=== PATIENT | male | born 1975 | race Caucasian/White ===

== ENCOUNTER 2017-05-04 12:13 | Observation (INO) | payer SELFPAY ==
--- NOTE | 2017-05-04 13:17 | ED ---
General Adult HPI - General Source: RN notes reviewed <Andry Dow - Last Filed: 05/04/17 14:47> <Willian Lane - Last Filed: 05/04/17 15:11> - General Stated complaint: Chest pain Time Seen by Provider: 05/04/17 12:43 - History of Present Illness Initial comments: Patient 41-year-old female with no significant past medical history, who presents emergency room today with a chief complaint of chest pain off-and-on over the last week. He does admit that he's been experiencing a somewhat constant discomfort. He states that sometimes he experiences a chest pain to the anterior chest wall that last anywhere from a few minutes to maybe 20 minutes at a time. He states it occurs every few hours. He denies anything that seems to make it better or worse. He states never had this pain in the past. Patient states that he is also experiencing some pain to the left shoulder and down the arm. Patient denies any other complaints or symptoms. Patient denies any recent fever, chills, shortness of breath, back pain, abdominal pain, nausea or vomiting, numbness or tingling, dysuria or hematuria, constipation or diarrhea, headaches or visual changes, or any other complaints. (Andry Dow) - Related Data Home Medications Medication Instructions Recorded Confirmed No Known Home Medications [No 05/04/17 05/04/17 Known Home Medications] Allergies Allergy/AdvReac Type Severity Reaction Status Date / Time Penicillins Allergy Rash/Hives Verified 05/04/17 13:36 Review of Systems ROS Other: All systems not noted in ROS Statement are negative. <Andry Dow - Last Filed: 05/04/17 14:47> ROS Other: All systems not noted in ROS Statement are negative. <Willian Lane - Last Filed: 05/04/17 15:11> ROS Statement: Those systems with pertinent positive or pertinent negative responses have been documented in the HPI. Past Medical History Past Medical History: No Reported History History of Any Multi-Drug Resistant Organisms: None Reported Past Surgical History: No Surgical Hx Reported Past Psychological History: No Psychological Hx Reported Smoking Status: Current every day smoker Past Alcohol Use History: Rare Past Drug Use History: None Reported <Andry Dow - Last Filed: 05/04/17 14:47> General Exam <Andry Dow - Last Filed: 05/04/17 14:47> <Willian Lane - Last Filed: 05/04/17 15:11> - General Exam Comments Initial Comments: General: The patient is awake and alert, in no distress, and does not appear acutely ill. Eye: Pupils are equal, round and reactive to light, extra-ocular movements are intact. No nystagmus. There is normal conjunctiva bilaterally. No signs of icterus. Ears, nose, mouth and throat: There are moist mucous membranes and no oral lesions. Neck: The neck is supple, there is no tenderness or JVD. Cardiovascular: There is a regular rate and rhythm. No murmur, rub or gallop is appreciated. Respiratory: Lungs are clear to auscultation, respirations are non-labored, breath sounds are equal. No wheezes, stridor, rales, or rhonchi. Gastrointestinal: Soft, non-distended, non-tender abdomen without masses or organomegaly noted. There is no rebound or guarding present. No CVA tenderness. Bowel sounds are unremarkable. Musculoskeletal: Normal ROM, no tenderness. Strength 5/5. Sensation intact. Pulses equal bilaterally 2+. Neurological: A&O x 3. CN II-XII intact, There are no obvious motor or sensory deficits. Coordination appears grossly intact. Speech is normal. Skin: Skin is warm and dry and no rashes or lesions are noted. Psychiatric: Cooperative, appropriate mood & affect, normal judgment. (Andry Dow) Medical Decision Making - Lab Data Result diagrams: 05/04/17 13:05 05/04/17 13:05 <Andry Dow - Last Filed: 05/04/17 14:47> - Lab Data Result diagrams: 05/04/17 13:05 05/04/17 13:05 <Willian Lane - Last Filed: 05/04/17 15:11> - Medical Decision Making Patient labs reviewed unremarkable. EKG shows normal sinus rhythm. Patient will be admitted to the hospital for serial enzymes. (Andry Dow) - Lab Data Lab Results 05/04/17 05/04/17 05/04/17 Range/Units 13:05 13:05 13:05 WBC 5.8 (3.8-10.6) k/uL RBC 5.23 (4.30-5.90) m/uL Hgb 16.5 (13.0-17.5) gm/dL Hct 47.8 (39.0-53.0) % MCV 91.5 (80.0-100.0) fL MCH 31.6 (25.0-35.0) pg MCHC 34.5 (31.0-37.0) g/dL RDW 12.8 (11.5-15.5) % Plt Count 271 (150-450) k/uL Neutrophils % 65 % Lymphocytes % 25 % Monocytes % 6 % Eosinophils % 2 % Basophils % 0 % Neutrophils # 3.8 (1.3-7.7) k/uL Lymphocytes # 1.5 (1.0-4.8) k/uL Monocytes # 0.4 (0-1.0) k/uL Eosinophils # 0.1 (0-0.7) k/uL Basophils # 0.0 (0-0.2) k/uL PT (9.0-12.0) sec INR (<1.2) APTT (22.0-30.0) sec D-Dimer (<0.60) mg/L FEU Sodium 139 (137-145) mmol/L Potassium 4.3 (3.5-5.1) mmol/L Chloride 106 (98-107) mmol/L Carbon Dioxide 20 L (22-30) mmol/L Anion Gap 13 mmol/L BUN 12 (9-20) mg/dL Creatinine 0.80 (0.66-1.25) mg/dL Est GFR (MDRD) Af Amer >60 (>60 ml/min/1.73 sqM) Est GFR (MDRD) Non-Af >60 (>60 ml/min/1.73 sqM) Glucose 107 H (74-99) mg/dL Calcium 9.5 (8.4-10.2) mg/dL Magnesium 1.7 (1.6-2.3) mg/dL Total Bilirubin 0.7 (0.2-1.3) mg/dL AST 23 (17-59) U/L ALT 35 (21-72) U/L Alkaline Phosphatase 87 (38-126) U/L Total Creatine Kinase 73 (55-170) U/L CK-MB (CK-2) 0.4 (0.0-2.4) ng/mL CK-MB (CK-2) Rel Index 0.5 Troponin I <0.012 (0.000-0.034) ng/mL Total Protein 8.0 (6.3-8.2) g/dL Albumin 4.8 (3.5-5.0) g/dL 05/04/17 Range/Units 13:05 WBC (3.8-10.6) k/uL RBC (4.30-5.90) m/uL Hgb (13.0-17.5) gm/dL Hct (39.0-53.0) % MCV (80.0-100.0) fL MCH (25.0-35.0) pg MCHC (31.0-37.0) g/dL RDW (11.5-15.5) % Plt Count (150-450) k/uL Neutrophils % % Lymphocytes % % Monocytes % % Eosinophils % % Basophils % % Neutrophils # (1.3-7.7) k/uL Lymphocytes # (1.0-4.8) k/uL Monocytes # (0-1.0) k/uL Eosinophils # (0-0.7) k/uL Basophils # (0-0.2) k/uL PT 11.4 (9.0-12.0) sec INR 1.1 (<1.2) APTT 23.1 (22.0-30.0) sec D-Dimer <0.17 (<0.60) mg/L FEU Sodium (137-145) mmol/L Potassium (3.5-5.1) mmol/L Chloride (98-107) mmol/L Carbon Dioxide (22-30) mmol/L Anion Gap mmol/L BUN (9-20) mg/dL Creatinine (0.66-1.25) mg/dL Est GFR (MDRD) Af Amer (>60 ml/min/1.73 sqM) Est GFR (MDRD) Non-Af (>60 ml/min/1.73 sqM) Glucose (74-99) mg/dL Calcium (8.4-10.2) mg/dL Magnesium (1.6-2.3) mg/dL Total Bilirubin (0.2-1.3) mg/dL AST (17-59) U/L ALT (21-72) U/L Alkaline Phosphatase (38-126) U/L Total Creatine Kinase (55-170) U/L CK-MB (CK-2) (0.0-2.4) ng/mL CK-MB (CK-2) Rel Index Troponin I (0.000-0.034) ng/mL Total Protein (6.3-8.2) g/dL Albumin (3.5-5.0) g/dL Disposition Time of Disposition: 14:48 <Andry Dow - Last Filed: 05/04/17 14:47> <Willian Lane - Last Filed: 05/04/17 15:11> Clinical Impression: Chest pain Disposition: ADMITTED IP TO THIS HOSP Instructions: Chest Pain (ED) Referrals: None,Stated [Primary Care Provider] - 1-2 days
[2017-05-04 13:23] LABS: WBC 5.8 k/uL (3.8-10.6)
[2017-05-04 13:24] LABS: HCT 47.8 % (39.0-53.0); HGB 16.5 gm/dL (13.0-17.5); RBC 5.23 m/uL (4.30-5.90)
[2017-05-04 13:25] LABS: CH 31.6; CHCM 34.7; HDW 2.31; Lymphocytes % (A) 25 %; MCH 31.6 pg (25.0-35.0); MCHC 34.5 g/dL (31.0-37.0); MCV 91.5 fL (80.0-100.0); Mean Platelet Volume 6.5; Monocytes % (A) 6 %; Neutrophils % (A) 65 %; RDW 12.8 % (11.5-15.5)
[2017-05-04 13:26] LABS: Basophils % (A) 0 %; Eosinophils # (A) 0.1 k/uL (0-0.7); Eosinophils % (A) 2 %; Luc % (Auto) 2; Lymphocytes # (A) 1.5 k/uL (1.0-4.8); Monocytes # (A) 0.4 k/uL (0-1.0); Neutrophils # (A) 3.8 k/uL (1.3-7.7)
[2017-05-04 13:32] LABS: ALT 35 U/L (21-72); AST 23 U/L (17-59); Alkaline Phosphatase 87 U/L (38-126); Anion Gap 13 mmol/L; Blood Urea Nitrogen 12 mg/dL (9-20); Calcium 9.5 mg/dL (8.4-10.2); Carbon Dioxide 20 mmol/L (22-30); Chloride 106 mmol/L (98-107); Glucose 107 mg/dL (74-99); Magnesium 1.7 mg/dL (1.6-2.3); Non-African American GFR(MDRD) >60 (>60 ml/min/1.73 sqM); Potassium 4.3 mmol/L (3.5-5.1); Sodium 139 mmol/L (137-145); Total Bilirubin 0.7 mg/dL (0.2-1.3)
[2017-05-04 13:42] LABS: Creatine Kinase 73 U/L (55-170)
[2017-05-04 13:47] LABS: INR 1.1 (<1.2); Partial Thromboplastin Time 23.1 sec (22.0-30.0); Prothrombin Time 11.4 sec (9.0-12.0)
[2017-05-04 13:53] LABS: Creatine Kinase MB 0.4 ng/mL (0.0-2.4); Troponin I <0.012 ng/mL (0.000-0.034)
--- NOTE | 2017-05-04 14:20 | XR ---
EXAMINATION TYPE: XR chest 2V DATE OF EXAM: 05/04/2017 CLINICAL HISTORY: Chest discomfort. TECHNIQUE: Frontal and lateral views of the chest are obtained. COMPARISON: None. FINDINGS: There is no focal air space opacity, pleural effusion, or pneumothorax seen. The cardiac silhouette size is within normal limits. The osseous structures are intact. IMPRESSION: No acute cardiopulmonary process.
[2017-05-04] MEDS ORDERED: NITROGLYCERIN SL TABS 0.4 MG TAB SUBLINGUAL PRN (14:49)
[2017-05-04] MEDS ORDERED: SODIUM CHLORIDE 0.9% 1,000 ML IV ONE (14:49)
[2017-05-04] MEDS ORDERED: oxyCODONE-APAP 5-325MG 1 EACH TAB PO PRN (15:38)
[2017-05-04] MEDS ORDERED: ACETAMINOPHEN TAB 325 MG TAB PO PRN (15:38)
--- NOTE | 2017-05-04 15:53 | P.HPIM ---
History of Present Illness H&P Date: 05/04/17 Chief Complaint: Chest pain The patient is a 41-year-old male with no previous past smoker history other than history of tobacco use which he quit 3 months ago Today she presents with the ER with chief complaint of mild achy chest discomfort intermittently for the last 7 days with some intermittent radiation None his left arm, some associated lightheadedness , he denies any exacerbating or relieving factors, he denies any shortness of breath nausea or vomiting. She reports that the pain can last anywhere from a few seconds to up to 20 minutes. He initially thought that he may have pulled a muscle Reported that the pain initially began a week ago when he was driving. Denies any history of anxiety or depression, but does report that he has been Increasingly anxious given that his uncle was recently diagnosed with cancer. Denies any related cardiac family history. In the ER he CBC CMP EKG was negative for any acute ischemia and negative set of troponins. Review of Systems All systems: negative Constitutional: Denies chills, Denies fever Eyes: denies blurred vision, denies pain Ears, nose, mouth and throat: Denies headache, Denies sore throat Cardiovascular: Denies chest pain, Denies shortness of breath Respiratory: Denies cough Gastrointestinal: Denies abdominal pain, Denies diarrhea, Denies nausea, Denies vomiting Musculoskeletal: Denies myalgias Integumentary: Denies pruritus, Denies rash Neurological: Denies numbness, Denies weakness Psychiatric: Denies anxiety, Denies depression Endocrine: Denies fatigue, Denies weight change Past Medical History Past Medical History: No Reported History History of Any Multi-Drug Resistant Organisms: None Reported Past Surgical History: No Surgical Hx Reported Past Psychological History: No Psychological Hx Reported Smoking Status: Current every day smoker Past Alcohol Use History: Rare Past Drug Use History: None Reported Medications and Allergies Home Medications Medication Instructions Recorded Confirmed Type No Known Home Medications [No 05/04/17 05/04/17 History Known Home Medications] Allergies Allergy/AdvReac Type Severity Reaction Status Date / Time Penicillins Allergy Rash/Hives Verified 05/04/17 13:36 Physical Exam Vitals: Intake and Output 05/04/17 05/04/17 05/04/17 06:59 14:59 22:59 Other: Weight 74.843 kg Patient Weight 05/05/17 06:59 Weight 74.843 kg Constitutional: No acute distress, conversant, pleasant Eyes: Anicteric sclerae, moist conjunctiva, no lid-lag, PERRLA ENMT: NC/AT,Oropharynx clear, no erythema, exudates Neck:Supple, FROM, no masses, or JVD, No carotid bruits; No thyromegaly Lungs: Clear to auscultation, Clear to percussion, Normal respiratory effort, no accessory muscle use Cardiovascular: Heart regular in rate and rhythm, No murmurs, gallops, or rubs no peripheral edema Abdominal: Soft Nontender, nom distended, no guarding, no rebound or rigidity, Normoactive bowel sounds No hepatomegaly, No splenomegaly, No palpable mass No abdominal wall hernia noted Skin: Normal temperature, tone, texture, turgor, No induration No subcutaneous nodules, No rash, lesions, No ulcers Extremities:No digital cyanosis No clubbing, Pedal pulses intact and symmetrical Radial pulses intact and symmetrical Normal gait and station, No calf tenderness Psychiatric: Alert and oriented to person, place and time, Appropriate affect Intact judgement Neuro: Muscles Strength 5/5 in all 4 extremities, Sensation to light touch grossly present throughout, Cranial nerves II-XII grossly intact. No focal sensory deficits Results CBC & Chem 7: 05/04/17 13:05 05/04/17 13:05 Labs: Abnormal Lab Results - Last 24 Hours (Table) 05/04/17 Range/Units 13:05 Carbon Dioxide 20 L (22-30) mmol/L Glucose 107 H (74-99) mg/dL Assessment and Plan (1) Atypical chest pain Status: Acute (2) Elevated blood pressure reading without diagnosis of hypertension Status: Acute Plan: Patient was placed in observation and anticipate less than the 2 nights stay for atypical chest pain, with very limited cardiac risk factors. Continue to trend his troponins, initial EKG was negative for any acute ischemia. Suspect that this is muscle skeletal etiology. Will continue Chest pain orders and stratify him with a lipid panel. Will order stress echo and continue to follow his clinical course. Patients HEART score is low risk of major adverse event 0.9 - 1.7% Time with Patient: Greater than 30
[2017-05-04 19:18] LABS: Creatine Kinase 58 U/L (55-170)
[2017-05-04 19:30] LABS: Creatine Kinase MB 0.3 ng/mL (0.0-2.4); Troponin I <0.012 ng/mL (0.000-0.034)
[2017-05-05 01:31] LABS: Creatine Kinase 58 U/L (55-170)
[2017-05-05 01:45] LABS: Creatine Kinase MB 0.3 ng/mL (0.0-2.4); Troponin I <0.012 ng/mL (0.000-0.034)
[2017-05-05 02:41] LABS: Cholesterol 251 mg/dL (<200); HDL Cholesterol 37 mg/dL (40-60)
[2017-05-05 07:22] VITALS: RESP 18
[2017-05-05] MEDS ORDERED: ASPIRIN 325 MG TAB PO SCH (09:00)
[2017-05-05 11:30] VITALS: BP 110/66; PULSE 82; TEMP 98.2
--- NOTE | 2017-05-05 13:59 | P.DS ---
Providers Date of admission: 05/04/17 15:25 Expected date of discharge: 05/05/17 Attending physician: Jerry Solano MD Consults: none Primary care physician: Stated None - Discharge Diagnosis(es) (1) Atypical chest pain Current Visit: Yes Status: Acute (2) Elevated blood pressure reading without diagnosis of hypertension Current Visit: Yes Status: Acute (3) Anxiety Current Visit: Yes Status: Acute Hospital Course: The patient is a 41-year-old male that presented to the ER with atypical chest pain with very limited risk factors that was Commended for admission to rule out ACS. His EKG was negative for any acute ischemia and sequential troponins were also negative The patient's pain was likely musculoskeletal and flank pain in origin superimposed on some anxiety. A stress Echocardiogram was ordered and this was negative. He was accordingly discharged home in stable condition with prescription for Vistaril. He was given Dr. Appiah Contact information and instructed to make a follow-up visit and to establish PCP. This discharge process took less than 30 minutes Patient Condition at Discharge: Stable Plan - Discharge Summary New Discharge Prescriptions: New Acetaminophen Tab [Tylenol] 650 mg PO Q6HR PRN tab PRN Reason: Mild Pain Or Fever > 100.5 hydrOXYzine PAMOATE [Vistaril] 25 mg PO TID PRN #30 cap PRN Reason: anxiety Discharge Medication List Acetaminophen Tab [Tylenol] 650 mg PO Q6HR PRN tab 05/05/17 [Rx] hydrOXYzine PAMOATE [Vistaril] 25 mg PO TID PRN #30 cap 05/05/17 [Rx] Follow up Appointment(s)/Referral(s): None,Stated [Primary Care Provider] - 1 Week (Chantell Appiah [address] [place] [address] ) Patient Instructions/Handouts: Chest Pain (ED) Discharge Disposition: HOME SELF-CARE
--- NOTE | 2017-05-05 14:24 | ECHOS ---
STRESS ECHOCARDIOGRAM DATE: 05/05/2017 INDICATIONS: Chest pain. MEDICATIONS:: No medications. BASELINE HEART RATE: 79 BASELINE BLOOD PRESSURE: 140/54 MAXIMUM HEART RATE: 174 MAXIMUM BLOOD PRESSURE: 151/61 85% MPHR: 154 100% MPHR: 181 METS: 11.7 MAXIMUM STAGE REACHED: 4 TOTAL EXERCISE TIME: 10:00 CLINICAL INFORMATION: Baseline EKG revealed a normal sinus rhythm without significant ST-T changes. Patient walked for 10 minutes on a standard [place] protocol. Achieved a maximum heart rate of 174 beats per minute. Developed fatigue, shortness of breath but did not have angina or arrhythmia. EKG did not reveal any ST-segment changes to indicate ischemia. By EKG criteria, this is a negative stress test with excellent exercise capacity. Baseline echo images revealed a normal wall motion and wall thickening of all segments. At peak exercise, there was good augmentation of left ventricular wall motion, wall thickening of all segments, suggesting that there is no evidence of stress-induced ischemia on this study. FINAL IMPRESSION: Excellent exercise capacity with a normal stress test by EKG criteria and a normal stress echocardiogram. MMODL / IJN: [id number] /
== END 2017-05-05 14:27 | disposition home or self-care (01) ==
LOC: EC 12:13 → 3OBS 15:25
PROVIDERS: ADMIT Family Medicine; ATTEND Family Medicine
DX: R07.89 Other chest pain (principal); R03.0 Elevated blood-pressure reading, without diagnosis of hypertension; F41.9 Anxiety disorder, unspecified; R42 Dizziness and giddiness; M25.512 Pain in left shoulder; F17.200 Nicotine dependence, unspecified, uncomplicated; Z88.0 Allergy status to penicillin
CPT/HCPCS: 99285; 36415; 93005; 93017; 93350; 85379; 80061; 80053; 82550 ×2; 82553 ×2; 83735; 84484 ×2; 85025; 85610; 85730; 71020; G0378 ×2